=== PATIENT | female | born 1990 | race Hispanic/Latino ===

== ENCOUNTER 2018-04-15 13:33 | Emergency (ER) | payer OTHER ==
[~2018-04-15] VITALS: Ht 154.9 cm; Wt 86.2 kg
[2018-04-15] MEDS ORDERED: NEOMYCIN/POLYMYX/BACITR OINT 0.9 GM PKT TOP ONE (14:00)
[2018-04-15] MEDS ORDERED: TETANUS/DIPHTHERIA TOX ADULT 0.5 ML SYR IM ONE (14:00)
[2018-04-15] MEDS ORDERED: LIDOCAINE HCL 1% LOCAL INJ 20 ML VIAL INJ ONE (15:00)
--- NOTE | 2018-04-15 15:36 | Diagnostic Imaging Report ---
Exam: Forearm, 2 views History: Laceration Comparison: None. Findings: There is normal bone mineralization. No acute, displaced fracture or dislocation. Joint spaces preserved. Soft tissue defect consistent with known laceration, measuring approximately 5.4 cm in length in the ulnar aspect of the midforearm. Impression: 1. Mid forearm soft tissue laceration without underlying bony abnormality. Signed by: Dr. Sharath Squires M.D. on 04/15/2018 3:33 PM
[2018-04-15 15:46] VITALS: BP 134/93
== END 2018-04-15 15:49 | disposition home or self-care (01) ==
LOC: ER 13:33
DX: S51.812A Laceration without foreign body of left forearm, initial encounter (principal); W25.XXXA Contact with sharp glass, initial encounter; Y93.G1 Activity, food preparation and clean up; Y92.000 Kitchen of unspecified non-institutional (private) residence as the place of occurrence of the external cause
CPT/HCPCS: 12002; 73090; 90471; 90714; 99284; J2001